=== PATIENT | male | born 1950 | race Caucasian/White ===

== ENCOUNTER 2017-04-08 18:09 | Emergency (ER) | payer MEDICARE, OTHER ==
[~2017-04-08] VITALS: Ht 170.2 cm; Wt 68.2 kg
[~2017-04-08 18:09] MED LIST: ASPIRIN E.C. 8181 MG PO; CELEBREX; CEPHALEXIN500 M1 PO; CYMBALTA; FLEXERIL 1010 MG/TAB PO; METHOCARBAMOL500 MG PO; NO HOME MEDICATIONS; NORCO 325 MG-51 TAB PO; NORCO 325 MG-7.1 TAB PO; PEPCID40 MG PO; ULTRAM 50MG TAB50 MG; XANAX1 MG PO
[2017-04-08 18:11] VITALS: BP 127/82; TEMP 97.7
[2017-04-08] MEDS ORDERED: FLEXERIL 1010 MG/TAB PO (18:15)
[2017-04-08] MEDS ORDERED: ZYRTEC10MGSGL (18:15)
[2017-04-08] MEDS ORDERED: AMITRIPTYLINE H10 M1 PO (18:15)
[2017-04-08 19:41] VITALS: PULSE 99
== END 2017-04-08 19:44 | disposition home or self-care (01) ==
LOC: COL.ER 18:09
DX: S62.627A Displaced fracture of middle phalanx of left little finger, initial encounter for closed fracture (principal); M54.9 Dorsalgia, unspecified; G89.29 Other chronic pain; F17.210 Nicotine dependence, cigarettes, uncomplicated; W19.XXXA Unspecified fall, initial encounter